=== PATIENT | female | born 2000 | race African-American/Black ===

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

== ENCOUNTER 2018-10-15 19:18 | Emergency (ER) | payer MEDICAID ==
[~2018-10-15] VITALS: Ht 154.9 cm; Wt 50.0 kg
[2018-10-15 19:44] VITALS: BP 128/76
== END 2018-10-15 22:00 | disposition left against medical advice (07) ==
LOC: ER 19:18
DX: R11.2 Nausea with vomiting, unspecified (principal); Z53.21 Procedure and treatment not carried out due to patient leaving prior to being seen by health care provider

== ENCOUNTER 2019-02-17 10:16 | Emergency (ER) | payer MEDICAID ==
[~2019-02-17] VITALS: Ht 154.9 cm; Wt 53.0 kg
[2019-02-17] MEDS ORDERED: SODIUM CHLORIDE 0.9% 1,000 ML IV ONE (11:00)
[2019-02-17 11:12] LABS: BASOPHILS % 0.3 % (0.0-2.0); EOSINOPHILS % 0.1 % (0.0-5.0); HEMOGLOBIN. 16.5 g/dL (12.0-16.0); MEAN CORPUSCULAR HEMOGLOBIN 31.4 pg (28.0-32.0); MEAN CORPUSCULAR VOLUME 93.5 fL (81.0-99.0); MEAN PLATELET VOLUME 9.2 fl (7.4-10.4); MONOCYTES % 5.3 % (2.0-8.0); NEUTROPHILS % 73.3 % (40.0-76.0); PLATELET 259 x1000/uL (130-400); RED BLOOD CELL COUNT 5.24 mill/uL (4.2-5.4); RED CELL DISTRIBUTION WIDTH 13.1 % (11.6-14.6)
[2019-02-17 11:17] LABS: INR 1.1; PROTHROMBIN TIME 11.4 sec (9.6-11.0)
[2019-02-17 11:20] LABS: CHLORIDE 107 mEq/L (98-107)
[2019-02-17 11:27] LABS: HCG SCREEN NEGATIVE
[2019-02-17] MEDS ORDERED: AMMONIA INHALATION 1EA INH ONE (11:45)
[2019-02-17] MEDS ORDERED: ONDANSETRON HCL 4MG/2ML INJ IV ONE ×2 (12:15→13:15)
[2019-02-17] MEDS ORDERED: POTASSIUM CHLORIDE 20MEQ TABLET SR PO ONE (12:30)
[2019-02-17 13:30] VITALS: BP 119/72
== END 2019-02-17 13:53 | disposition home or self-care (01) ==
LOC: ER 10:16
DX: T51.0X1A Toxic effect of ethanol, accidental (unintentional), initial encounter (principal); Y92.89 Other specified places as the place of occurrence of the external cause; F12.10 Cannabis abuse, uncomplicated
CPT/HCPCS: 36415; 80053; 80307; 80320; 80329; 84703; 85025; 85610; 86850; 86900; 86901; 96361; 96374; 96376; 99283; J2405; J7030; G0480

== ENCOUNTER 2019-03-12 13:16 | Emergency (ER) | payer MEDICAID ==
[~2019-03-12] VITALS: Ht 165.1 cm; Wt 52.0 kg
[2019-03-12 13:23] VITALS: BP 117/60
== END 2019-03-12 19:02 | disposition left against medical advice (07) ==
LOC: ER 13:16
DX: Z53.21 Procedure and treatment not carried out due to patient leaving prior to being seen by health care provider (principal)

== ENCOUNTER 2021-04-30 21:37 | Emergency (ER) | payer MEDICAID ==
[~2021-04-30] VITALS: Ht 162.6 cm; Wt 57.0 kg
[2021-04-30] MEDS: SODIUM CHLORIDE 0.9% 1,000 ML IV ONE ×2 (23:15→23:28)
[2021-05-01 00:17] LABS: HEMATOCRIT. 38.4 % (36.0-48.0); HEMOGLOBIN. 13.2 g/dL (12.0-16.0); MEAN CORPUSCULAR HEMOGLOBIN 31.1 pg (28.0-32.0); MEAN CORPUSCULAR VOLUME 90.5 fL (81.0-99.0); MEAN PLATELET VOLUME 7.9 fl (7.4-10.4); PLATELET 280 x1000/uL (130-400); RED BLOOD CELL COUNT 4.25 mill/uL (4.2-5.4); RED CELL DISTRIBUTION WIDTH 13.1 % (11.6-14.6)
[2021-05-01 00:21] LABS: CHLORIDE 108 mEq/L (98-107)
[2021-05-01 00:25] LABS: ETHANOL BLOOD < 10 mg/dL
[2021-05-01 00:28] LABS: HCG SCREEN NEGATIVE
[2021-05-01 02:45] LABS: PLATELET ESTIMATE NORMAL
[2021-05-01 03:18] LABS: CLARITY URINE CLEAR (CLEAR); COLOR URINE YELLOW (YELLOW); KETONES URINE 2+ (NEGATIVE); LEUKOCYTE ESTERASE URINE NEGATIVE (NEGATIVE); NITRITE URINE NEGATIVE (NEGATIVE); OCCULT BLOOD URINE NEGATIVE (NEGATIVE); PROTEIN URINE NEGATIVE (NEGATIVE); SPECIFIC GRAVITY URINE 1.018 (1.005-1.030); UROBILINOGEN URINE 0.2 E.U./dL (0.2-1.0)
[2021-05-01 03:27] LABS: *BENZODIAZEPINES SCREEN URINE NEGATIVE (NEGATIVE); *COCAINE SCREEN URINE NEGATIVE (NEGATIVE); METHADONE URINE SCREEN NEGATIVE (NEGATIVE)
[2021-05-01 03:28] LABS: *AMPHETAMINES SCREEN URINE NEGATIVE (NEGATIVE); *BARBITURATES SCREEN URINE NEGATIVE (NEGATIVE); CANNABINOID URINE SCREEN NEGATIVE (NEGATIVE); OPIATES URINE SCREEN NEGATIVE (NEGATIVE); PHENCYCLIDINE URINE SCREEN NEGATIVE (NEGATIVE)
[2021-05-01 06:02] VITALS: BP 110/71
== END 2021-05-01 06:05 | disposition home or self-care (01) ==
LOC: ER 21:37
DX: R56.9 Unspecified convulsions (principal); R45.851 Suicidal ideations; F17.200 Nicotine dependence, unspecified, uncomplicated; F12.10 Cannabis abuse, uncomplicated
CPT/HCPCS: 36415; 80053; 80305; 80307; 80320; 80329; 81003; 82962; 84703; 85025; 93005; 96360; 96361; 99285; J7030; G0480

== ENCOUNTER 2022-05-18 17:17 | Emergency (ER) | payer MEDICAID | END 2022-05-18 21:31 | disposition left against medical advice (07) | LOC: ER 17:17 | DX: Z53.21 Procedure and treatment not carried out due to patient leaving prior to being seen by health care provider (principal) ==